=== PATIENT | male | born 1995 | race Caucasian/White ===

== ENCOUNTER 2018-06-22 10:06 | Emergency (ER) | payer BC, SELFPAY ==
--- NOTE | 2018-06-22 10:08 | W.ED.GENAD ---
Discharge Plan Disposition Patient Disposition: HOME Condition: Stable Discharge Details Chief Complaint: Headache Clinical Impression: Migraine Primary Care Provider: Miguel Brice ED Provider: Brandon Hall Home Meds and New Rx's Prescriptions: No Action No Known Home Meds RF: 0 Discharge Instructions Instructions: Migraine Headache (ED) Additional Instructions: You can take 1000mg tylenol and 600mg ibuprofen every 6 hours for pain as needed if you have severe worsening of pain, fevers, or persistent vomit return to the emergency department for reevaluation you should be contacted with an appointment with a primary care provider Medical Decision Making 23 yo male with hx of migraines though hasn't had one in 4 years comes in with frontal headache slowly worsening since yesterday and is similar to his prior migraines, not the worst of his life. HE is caox4 with stable gait, CN II-XII are intact, no focal motor or sensation deficits and normal speech. No fevers, no meningismus on exam to suggest music internship infection. No findings to suggest cavernous sinus thrombosis, cerebral venous thrombosis. Pain is slowly worsening and not thunderclap so doubt sah at this time. Will treat for migraine and reassess pt feels significantly better, reassuring neuro exam still. Will d/c home, placed on f/u list to get set up with pcp and return precautions given Differential Diagnosis migraine, tension headache, cluster headaches HPI General Mode of arrival: ambulatory. Date/Time Provider Initiated Documentation: 06/22/18 10:08. Limitations to Documentation: no limitations. Information obtained by: patient. History of Present Illness 23 year old M presents to the emergency department with the chief complaint of headache, described as severe, with intensity rated at 7. Quality is described as aching, and is localized to the head. Patient reports no radiation. Patient started experiencing this day(s) (1) and it has been constant. No relieving factors improve symptom(s), No exacerbating factors reported . Patient notes nausea/vomiting. Patient did receive the following treatments prior to arrival, other (tylenol) Related Data Home Medications Medication Instructions Recorded Confirmed Unknown [No Known Home Meds] 06/22/18 06/22/18 Allergies Allergy/AdvReac Type Severity Reaction Status Date / Time No Known Allergies Allergy Unverified 06/22/18 10:15 Review of Systems Review of Systems All systems reviewed & are unremarkable except as noted in HPI and below Constitutional Denies chills, Denies fever(s) and Denies weakness Eyes Denies loss of vision ENT Denies change in voice Cardiovascular Denies chest pain and Denies dyspnea Respiratory Denies dyspnea Gastrointestinal Denies abdominal pain, Denies nausea and Denies vomiting Genitourinary Denies dysuria Musculoskeletal Denies joint swelling Integumentary/Breasts Denies rash Neurologic Denies loss of vision and Denies weakness Psychiatric Denies depression Endocrine Denies cold intolerance and Denies heat intolerance [facility] Social History Smoking/Tobacco Use Status: Never Exam Const General: no acute distress Orientation: alert HENMT Head: normal to inspection Ears: external ears normal General nose exam: external nose normal Mouth: moist mucous membranes Eyes General: appearance normal, both eyes and all related structures Neck Neck: normal visual inspection Resp Effort & Inspection: normal respiratory effort and able to speak in complete sentences Cardio Rate: regular rate Skin General skin exam: no rashes or lesions noted Neuro General: alert and oriented x3 Extrem General: normal to inspection Psych Mental Status: mental status grossly normal
[2018-06-22 10:12] VITALS: BP 120/71; PULSE 73; RESP 16; TEMP 37; O2SAT 100
--- NOTE | 2018-06-22 10:25 | ED.GENADUL_ITS ---
Discharge Plan Disposition Patient Disposition: HOME Condition: Stable Discharge Details Chief Complaint: Headache Clinical Impression: Migraine Primary Care Provider: Miguel Brice ED Provider: Brandon Hall Home Meds and New Rx's Prescriptions: No Action No Known Home Meds RF: 0 Discharge Instructions Instructions: Migraine Headache (ED) Additional Instructions: You can take 1000mg tylenol and 600mg ibuprofen every 6 hours for pain as needed if you have severe worsening of pain, fevers, or persistent vomit return to the emergency department for reevaluation you should be contacted with an appointment with a primary care provider Medical Decision Making 23 yo male with hx of migraines though hasn't had one in 4 years comes in with frontal headache slowly worsening since yesterday and is similar to his prior migraines, not the worst of his life. HE is caox4 with stable gait, CN II-XII are intact, no focal motor or sensation deficits and normal speech. No fevers, no meningismus on exam to suggest airport manager infection. No findings to suggest cavernous sinus thrombosis, cerebral venous thrombosis. Pain is slowly worsening and not thunderclap so doubt sah at this time. Will treat for migraine and reassess pt feels significantly better, reassuring neuro exam still. Will d/c home, placed on f/u list to get set up with pcp and return precautions given Differential Diagnosis migraine, tension headache, cluster headaches HPI General Mode of arrival: ambulatory . Date/Time Provider Initiated Documentation: 06/22/18 10:08 . Limitations to Documentation: no limitations . Information obtained by: patient . History of Present Illness 23 year old M presents to the emergency department with the chief complaint of headache, described as severe, with intensity rated at 7. Quality is described as aching, and is localized to the head. Patient reports no radiation. Patie nt started experiencing this day(s) (1) and it has been constant. No relieving factors improve symptom(s), No exacerbating factors reported . Patient notes nausea/vomiting. Patient did receive the following treatments prior to arrival, other (tylenol) Related Data Home Medications Medication Instructions Recorded Confirmed Unknown [No Known Home Meds] 06/22/18 06/22/18 Allergies Allergy/AdvReac Type Severity Reaction Status Date / Time No Known Allergies Allergy Unverified 06/22/18 10:15 Review of Systems Review of Systems All systems reviewed & are unremarkable except as noted in HPI and below Constitutional Denies chills, Denies fever(s) and Denies weakness Eyes Denies loss of vision ENT Denies change in voice Cardiovascular Denies chest pain and Denies dyspnea Respiratory Denies dyspnea Gastrointestinal Denies abdominal pain, Denies nausea and Denies vomiting Genitourinary Denies dysuria Musculoskeletal Denies joint swelling Integumentary/Breasts Denies rash Neurologic Denies loss of vision and Denies weakness Psychiatric Denies depression Endocrine Denies cold intolerance and Denies heat intolerance [facility] Social History Smoking/Tobacco Use Status: Never Exam Const General: no acute distress Orientation: alert HENMT Head: normal to inspection Ears: external ears normal General nose exam: external nose normal Mouth: moist mucous membranes Eyes General: appearance normal, both eyes and all related structures Neck Neck: normal visual inspection Resp Effort & Inspection: normal respiratory effort and able to speak in complete sentences Cardio Rate: regular rate Skin General skin exam: no rashes or lesions noted Neuro General: alert and oriented x3 Extrem General: normal to inspection Psych Mental Status: mental status grossly normal
[2018-06-22] MEDS: SUMAtriptan 6 MG/0.5 ML VIAL SC (10:36)
[2018-06-22] MEDS: Normal Saline 1,000 ML 1000 ML IV (10:40)
[2018-06-22] MEDS: diphenhydrAMINE 50 MG/ML VIAL 25 MG IVP (10:43)
[2018-06-22] MEDS: Ketorolac 30 MG/ML VIAL 15 MG IVP (10:44)
[2018-06-22] MEDS: Prochlorperazine 10 MG/2 ML VIAL IVP (10:46)
[2018-06-22] MEDS: Normal Saline 50 ML 200 ML (10:47)
[2018-06-22 11:20] VITALS: BP 116/70; PULSE 72; RESP 16; TEMP 37
--- NOTE | 2018-06-23 09:10 | PDOC.ERCMPRO ---
Care Management Progress Note 06/23-Dr. 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 Referral faxed to [facility] this am.
--- NOTE | 2018-06-23 09:11 | CMPROGNOTE_ITS ---
Care Management Progress Note 06/23-Dr. 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 Referral faxed to [facility] this am.
== END 2018-06-22 11:18 | disposition home or self-care (01) ==
LOC: ER 11:24
PROVIDERS: Emergency Provider Emergency Medicine; PCP Pediatrics
DX: G43.909 Migraine, unspecified, not intractable, without status migrainosus (principal)
CPT/HCPCS: 96361; 96372; 96374; 96375; 99284; J0780; J1200; J1885